=== PATIENT | male | born 1940 | race Caucasian/White ===

== ENCOUNTER 2017-07-21 09:27 | Outpatient (CLI) | payer MEDICARE, BC ==
[2017-07-21 11:00] LABS: ALT (SGPT) 24 U/L (8-55); AST (SGOT) 19 U/L (5-34); Alkaline Phosphatase 70 U/L (40-150); Anion Gap 10 mmol/L (10-20); BUN (Urea Nitrogen) 15 mg/dL (8.4-25.7); Bilirubin, Total 0.9 mg/dL (0.2-1.2); Calc. Creatinine Clearance 0 mL/min (70-130); Calcium 9.5 mg/dL (7.8-10.44); Carbon Dioxide 27 mmol/L (23-31); Chloride 105 mmol/L (98-107); Estimated GFR-MDRD 89; Globulin 3.3 g/dL (2.4-3.5); Protein, Total 7.4 g/dL (5.8-8.1)
[2017-07-21 11:06] LABS: Bilirubin Negative (Negative); Blood, Urine Negative (Negative); Glucose, Urine (Dipstick) Negative (Negative); Ketone, Urine Negative (Negative); Nitrite Negative (Negative); Protein, Urine (Dipstick) Negative (Neg-Trace); Urobilinogen 0.2 mg/dL (0.2-1.0)
[2017-07-21 11:11] LABS: Bacteria/HPF None Seen HPF (None Seen); Hyaline Casts/LPF 0-3 HYALINE CAST LPF (0-3 Hyaline); RBC/HPF 0-3 HPF (0-3); Squamous Epithelial None Seen HPF (0-3); WBC/HPF None Seen HPF (0-3)
--- NOTE | 2017-07-21 15:01 | ULT ---
RENAL SONOGRAM: HISTORY: Incomplete bladder emptying. FINDINGS: The right kidney is 12.1 cm in length and the left 11.6 cm. A 2.9 cm cyst is present at the medial c ortex of the inferior pole left kidney. No solid mass or hydronephrosis are apparent. Urinary bladder is unremarkable. IMPRESSION: 1. No evidence of urinary tract obstruction. 2. Left renal cyst. POS: [facility]
== END 2017-07-21 09:28 | disposition home or self-care (01) ==
LOC: ULT 09:27
PROVIDERS: ATTEND Urology
DX: N40.1 Benign prostatic hyperplasia with lower urinary tract symptoms (principal); R35.1 Nocturia; R39.14 Feeling of incomplete bladder emptying; I10 Essential (primary) hypertension; N28.1 Cyst of kidney, acquired
CPT/HCPCS: 36415; 76770; 80053; 81001; 87086

== ENCOUNTER 2018-04-15 14:20 | Outpatient (CLI) | payer MEDICARE, BC | END 2018-04-15 14:21 | disposition home or self-care (01) | LOC: BICCT 14:20 | PROVIDERS: ATTEND Internal Medicine Cardiovascular Disease | DX: I71.9 Aortic aneurysm of unspecified site, without rupture (principal); I71.2 Thoracic aortic aneurysm, without rupture | CPT/HCPCS: 71270; 82565 ==

== ENCOUNTER 2018-05-28 14:38 | Outpatient (CLI) | payer MEDICARE, BC | END 2018-05-28 14:39 | disposition home or self-care (01) | LOC: CP 14:38 | DX: Z01.818 Encounter for other preprocedural examination (principal); I35.1 Nonrheumatic aortic (valve) insufficiency | CPT/HCPCS: 94010; 94727 ==